=== PATIENT | male | born 1960 | race Caucasian/White ===

== ENCOUNTER 2017-01-12 12:59 | Inpatient (IN) | payer MEDICAID ==
[2017-01-12] VITALS (13 sets, daily range): BP systolic 113–155
[~2017-01-12] VITALS: Ht 182.9 cm; Wt 85.7 kg
[2017-01-12] MEDS ORDERED: DILTIAZEM HCL 156.25 MG in D5W 100 ML IV ONE (13:15)
[2017-01-12] MEDS ORDERED: DILTIAZEM HCL 25 MG/5 ML VIAL IVP ONE (13:15)
[2017-01-12] MEDS ORDERED: ASPIRIN 81 MG TAB.CHEW PO ONE (13:15)
[2017-01-12 13:38] LABS: BASOPHILS # (AUTO) 0.1 K/uL (0.0-0.2); BASOPHILS % (AUTO) 0.9 % (0.0-2.0); HEMATOCRIT 42.3 % (36-54); HEMOGLOBIN 13.9 g/dL (14.0-18.0); LYMPHOCYTES # (AUTO) 0.2 K/uL (1.0-5.5); LYMPHOCYTES % (AUTO) 2.6 % (20.5-51.5); MEAN CORPUSCULAR HEMOGLOBIN 34 pg (27-31); MEAN CORPUSCULAR HGB CONC 33 % (32-36); MEAN CORPUSCULAR VOLUME 104 fL (79.0-98.0); MONOCYTES # (AUTO) 0.6 K/uL (0.0-1.0); MONOCYTES % (AUTO) 6.5 % (1.7-9.3); NEUTROPHILS # (AUTO) 8.2 K/uL (1.8-7.7); PLATELET COUNT (AUTO) 180 K/uL (130-430); RED BLOOD CELL COUNT(AUTO) 4.05 MIL/uL (4.2-6.2); RED CELL DISTRIBUTION WIDTH 11.9 % (9.0-15.0); WHITE BLOOD COUNT (AUTO) 9.1 K/uL (4.8-10.8)
[2017-01-12 13:39] LABS: CALCIUM 9.1 mg/dL (8.4-11.0); CHLORIDE 92 mmol/L (98-107); POTASSIUM 4.9 mmol/L (3.5-5.1); SODIUM SERUM 129 mmol/L (136-145); UREA NITROGEN, BLOOD 17 mg/dL (8-21)
[2017-01-12 13:41] LABS: PROTHROMBIN TIME 10.7 SECS (9.5-12.5)
[2017-01-12] MEDS ORDERED: NS 250 ML IV ONE (13:45)
[2017-01-12 13:50] LABS: ALANINE AMINOTRANSFERASE 75 U/L (12-78); ALBUMIN 2.8 g/dL (3.4-4.8); ANION GAP 32 (5-15); ASPARTATE AMINOTRANSFERASE 52 U/L (10-37); FREE T4 (FREE THYROXINE) 0.9 ng/dl (0.8-1.5); TOTAL BILIRUBIN 0.9 mg/dL (0.0-1.0)
[2017-01-12 13:51] LABS: GFR AFRICAN AMERICAN 62 mL/min (>90)
[2017-01-12 13:53] LABS: GLUCOSE 484 mg/dL (70-99)
[2017-01-12 13:54] LABS: ALCOHOL, BLOOD < 3 mg/dL (<10)
[2017-01-12] MEDS ORDERED: DIGOXIN 0.5 MG/2 ML AMP IVP ONE ×2 (14:15)
[2017-01-12] MEDS ORDERED: NACL 0.9% 1,000 ML IV SCH (14:15)
[2017-01-12] MEDS ORDERED: *HEPARIN PER PHARMACY XX ONE (14:15)
[2017-01-12] MEDS ORDERED: NACL 0.9% 1,000 ML IV ONE ×2 (14:15→17:00)
[2017-01-12] MEDS ORDERED: INSULIN REGULAR, HUMAN 10 UNITS/0.1 ML INJ IVP ONE (14:15)
[2017-01-12] MEDS ORDERED: IOHEXOL 350 mgI/mL, 150 ML INFUS..BTL IV ONE (15:05)
[2017-01-12 15:11] LABS: BILIRUBIN,URINE 1+ (NEGATIVE); BLOOD, URINE 2+ (NEGATIVE); CLARITY/URINE CLEAR (CLEAR); COLOR,URINE YELLOW (YELLOW); GLUCOSE,URINE 3+ (NEGATIVE); KETONES,URINE 2+ (NEGATIVE); LEUKOCYTE ESTERASE ,URINE NEGATIVE (NEGATIVE); NITRITE, URINE NEGATIVE (NEGATIVE); PH,URINE 5.5 (5.0-8.0); PROTEIN URINE 2+ (NEGATIVE)
[2017-01-12 15:13] LABS: BACTERIA,URINE FEW /HPF (None Seen); MUCUS,URINE None Seen /LPF (None Seen); RBC,URINE 0-3 /HPF (0-3); WBC,URINE NONE SEEN /HPF (0-3)
[2017-01-12 15:14] LABS: BARBITURATE, URINE NEGATIVE (NEG <=200); BENZODIAZEPINE, URINE NEGATIVE (NEG <=150); CANNABINOID, URINE NEGATIVE (NEG <=50); COCAINE, URINE NEGATIVE (NEG <=150); METHAMPHETAMINES SCREEN,URINE NEGATIVE (NEG <=500); OPIATE, URINE NEGATIVE (NEG <=100); PHENCYCLIDINE SCREEN,URINE NEGATIVE (NEG <=25); UR TRICYCLIC ANTIDEPRESSANTS NEGATIVE (NEG <=300); URINE AMPHETAMINE NEGATIVE (NEG <=500); URINE METHADONE NEGATIVE (NEG <=200); URINE OXYCODONE SCREEN NEGATIVE (NEG <=100); URINE PROPOXYPHENE SCREEN NEGATIVE (NEG <=300)
[2017-01-12] MEDS ORDERED: HEPARIN SODIUM,PORCINE 3000 UNITS/0.6 ML BOLUS IVP ONE (15:15)
[2017-01-12] MEDS ORDERED: NACL 0.9% 1,000 ML IV STA (16:44)
[2017-01-12] MEDS ORDERED: DEXTROSE 50% JECT 50 ML (1 AMP) IVP PRN (16:45)
[2017-01-12] MEDS ORDERED: HEPARIN SODIUM,PORCINE 2000 UNITS/0.4 ML BOLUS IVP PRN (16:45)
[2017-01-12] MEDS ORDERED: HEPARIN SODIUM,PORCINE 3000 UNITS/0.6 ML BOLUS IVP PRN (16:45)
[2017-01-12] MEDS ORDERED: 0.45% NACL 1,000 ML IV SCH (16:45)
[2017-01-12] MEDS: HEPARIN 25,000 UNITS in 250 ML PREMIX IV PRN (16:52)
[2017-01-12 17:18] LABS: CALCIUM 9.1 mg/dL (8.4-11.0); CREATININE 1.29 mg/dL (0.55-1.30); POTASSIUM 4.2 mmol/L (3.5-5.1)
[2017-01-12] MEDS ORDERED: INSULIN REGULAR, HUMAN 101.01 UNITS in NS 99 ML IV PRN ×2 (17:45)
[2017-01-12] MEDS: CEFEPIME 1 GM in D5W 50 ML IV SCH (18:05)
[2017-01-12] MEDS: INSULIN REGULAR, HUMAN 101.01 UNITS in NS 99 ML IV PRN ×6 (18:35→20:58)
[2017-01-12] MEDS: VANCOMYCIN HCL 1,250 MG in NS 250 ML IV SCH (18:43)
[2017-01-12] MEDS ORDERED: DILTIAZEM HCL 125 MG/25 ML VIAL IV ONE ×2 (20:50→20:55)
[2017-01-12] MEDS: DILTIAZEM HCL 125 MG in D5W 100 ML IV PRN (21:09)
[2017-01-12 21:57] LABS: CALCIUM 8.6 mg/dL (8.4-11.0); CREATININE 1.2 mg/dL (0.55-1.30); POTASSIUM 3.9 mmol/L (3.5-5.1)
[2017-01-12] MEDS: MORPHINE 2 MG/ML INJ. SYRINGE IVP PRN (22:07)
[2017-01-12] MEDS ORDERED: COMMUNICATION ORDER XX ONE ×3 (22:30→22:45)
[2017-01-12] MEDS ORDERED: KCL 20 mEq in D5/0.45NS 1000mL 1,000 ML IV SCH (23:15)
[2017-01-12 23:44] LABS: CALCIUM 8.9 mg/dL (8.4-11.0); CREATININE 1.06 mg/dL (0.55-1.30); POTASSIUM 3.9 mmol/L (3.5-5.1)
[2017-01-13] VITALS (24 sets, daily range): BP systolic 120–151
[2017-01-13] MEDS: MORPHINE 2 MG/ML INJ. SYRINGE IVP PRN ×3 (01:48→14:52)
[2017-01-13] MEDS ORDERED: KCL 20 mEq in 100 mL (PREMIX) 100 ML IV PRN (03:00)
[2017-01-13 03:33] LABS: CALCIUM 8.2 mg/dL (8.4-11.0); CREATININE 1.11 mg/dL (0.55-1.30); POTASSIUM 3.3 mmol/L (3.5-5.1)
[2017-01-13] MEDS ORDERED: DILTIAZEM HCL 125 MG/25 ML VIAL IV ONE ×2 (05:05→05:09)
[2017-01-13] MEDS: DILTIAZEM HCL 125 MG in D5W 100 ML IV PRN (05:12)
[2017-01-13] MEDS ORDERED: DILTIAZEM HCL 25 MG/5 ML VIAL ONE (05:13)
[2017-01-13] MEDS: CEFEPIME 1 GM in D5W 50 ML IV SCH ×2 (05:20→17:24)
[2017-01-13] MEDS: VANCOMYCIN HCL 1,250 MG in NS 250 ML IV SCH ×2 (05:20→20:27)
[2017-01-13] MEDS: HEPARIN 25,000 UNITS in 250 ML PREMIX IV PRN (07:20)
[2017-01-13 07:28] LABS: CALCIUM 8.4 mg/dL (8.4-11.0); POTASSIUM 3.6 mmol/L (3.5-5.1)
[2017-01-13] MEDS ORDERED: KCL 20 mEq in 100 mL (PREMIX) 100 ML IV ONE (08:27)
[2017-01-13] MEDS ORDERED: GLUCOSE 15 GM GEL (in 37.5 GM TUBE) PO PRN ×2 (09:15)
[2017-01-13] MEDS ORDERED: DEXTROSE 50%-WATER 50 ML DISP.SYRIN IVP PRN ×2 (09:15)
[2017-01-13] MEDS: KCL 20 mEq in 0.45% NS 1000 mL 1,000 ML IV SCH ×2 (10:38→20:27)
[2017-01-13 11:56] LABS: CALCIUM 8.4 mg/dL (8.4-11.0); CREATININE 1.1 mg/dL (0.55-1.30); POTASSIUM 4.1 mmol/L (3.5-5.1)
[2017-01-13] MEDS: DILTIAZEM HCL 156.25 MG in D5W 100 ML IV SCH ×2 (12:51→21:39)
[2017-01-13] MEDS: INSULIN ASPART 100 UNITS/ML, 10 ML VIAL (NovoLOG) SUBCUT PRN ×2 (12:59→16:36)
[2017-01-13] MEDS ORDERED: DILTIAZEM HCL 180 MG CAP.SR.24H PO ONE (13:30)
[2017-01-13 15:25] LABS: CALCIUM 8.2 mg/dL (8.4-11.0); CREATININE 1.13 mg/dL (0.55-1.30); POTASSIUM 3.5 mmol/L (3.5-5.1)
[2017-01-13] MEDS ORDERED: LORazepam 1 MG TABLET PO PRN ×2 (16:30→18:30)
[2017-01-13] MEDS ORDERED: MORPHINE 2 MG/ML INJ. SYRINGE IVP ONE (17:15)
[2017-01-13] MEDS ORDERED: LORazepam 2 MG/ML VIAL IVP ONE ×2 (18:30→21:00)
[2017-01-13] MEDS ORDERED: chlordiazePOXIDE HCL 25 MG CAPSULE PO PRN (18:30)
[2017-01-13] MEDS ORDERED: LORazepam 2 MG/ML VIAL ONE (18:39)
[2017-01-13] MEDS: CLINDAMYCIN 600 MG in D5W 50 ML IV SCH ×2 (20:27→23:56)
[2017-01-13] MEDS: RIVAROXABAN 10 MG TABLET PO SCH (21:40)
[2017-01-13] MEDS: MORPHINE 4 MG/ML INJ. SYRINGE IVP PRN (23:57)
[2017-01-14] VITALS (24 sets, daily range): BP systolic 98–144
[2017-01-14] MEDS: LORazepam 2 MG/ML VIAL IVP PRN ×2 (02:34→05:54)
[2017-01-14] MEDS: KCL 20 mEq in 0.45% NS 1000 mL 1,000 ML IV SCH ×2 (02:43→16:48)
[2017-01-14] MEDS: CEFEPIME 1 GM in D5W 50 ML IV SCH ×2 (04:41→17:19)
[2017-01-14] MEDS ORDERED: DILTIAZEM HCL 125 MG/25 ML VIAL IV ONE (05:23)
[2017-01-14] MEDS: CLINDAMYCIN 600 MG in D5W 50 ML IV SCH ×3 (05:27→17:54)
[2017-01-14] MEDS: VANCOMYCIN HCL 1,250 MG in NS 250 ML IV SCH ×2 (05:27→18:28)
[2017-01-14] MEDS: INSULIN ASPART 100 UNITS/ML, 10 ML VIAL (NovoLOG) SUBCUT PRN ×2 (06:03→11:00)
[2017-01-14 06:23] LABS: BASOPHILS % (AUTO) 0.9 % (0.0-2.0); EOSINOPHILS % (AUTO) 0.6 % (0.0-4.0); HEMATOCRIT 33.2 % (36-54); HEMOGLOBIN 11.2 g/dL (14.0-18.0); LYMPHOCYTES # (AUTO) 0.6 K/uL (1.0-5.5); LYMPHOCYTES % (AUTO) 15.7 % (20.5-51.5); MEAN CORPUSCULAR HEMOGLOBIN 35 pg (27-31); MEAN CORPUSCULAR HGB CONC 34 % (32-36); MEAN CORPUSCULAR VOLUME 103 fL (79.0-98.0); MONOCYTES # (AUTO) 0.4 K/uL (0.0-1.0); MONOCYTES % (AUTO) 10.5 % (1.7-9.3); NEUTROPHILS # (AUTO) 3.1 K/uL (1.8-7.7); NEUTROPHILS % (AUTO) 72.3 % (40.0-70.0); PLATELET COUNT (AUTO) 132 K/uL (130-430); RED BLOOD CELL COUNT(AUTO) 3.23 MIL/uL (4.2-6.2); RED CELL DISTRIBUTION WIDTH 12.3 % (9.0-15.0); WHITE BLOOD COUNT (AUTO) 4.1 K/uL (4.8-10.8)
[2017-01-14 06:46] LABS: CALCIUM 8.2 mg/dL (8.4-11.0); CREATININE 1.02 mg/dL (0.55-1.30); POTASSIUM 3.3 mmol/L (3.5-5.1)
[2017-01-14] MEDS ORDERED: IOHEXOL 100 ML IV ONE (11:39)
[2017-01-14] MEDS ORDERED: LIDOCAINE 1%, 20 ML MDV 20 ML ONE (11:55)
[2017-01-14] MEDS: MORPHINE 4 MG/ML INJ. SYRINGE IVP PRN (13:47)
[2017-01-14] MEDS ORDERED: POTASSIUM CHLORIDE 20 MEQ/PKT PACKET PO ONE (16:45)
[2017-01-14] MEDS: RIVAROXABAN 10 MG TABLET PO SCH (17:54)
[2017-01-14] MEDS ORDERED: DILTIAZEM HCL 125 MG in D5W 100 ML IV SCH (18:42)
[2017-01-15] VITALS (21 sets, daily range): BP systolic 105–138
[2017-01-15] MEDS: CLINDAMYCIN 600 MG in D5W 50 ML IV SCH ×3 (00:48→11:16)
[2017-01-15] MEDS: MORPHINE 4 MG/ML INJ. SYRINGE IVP PRN ×2 (00:49→05:28)
[2017-01-15] MEDS: KCL 20 mEq in 0.45% NS 1000 mL 1,000 ML IV SCH ×2 (05:29→16:20)
[2017-01-15] MEDS: CEFEPIME 1 GM in D5W 50 ML IV SCH (05:52)
[2017-01-15] MEDS: VANCOMYCIN HCL 1,250 MG in NS 250 ML IV SCH ×2 (06:12→17:46)
[2017-01-15 06:38] LABS: CREATININE 0.84 mg/dL (0.55-1.30)
[2017-01-15 06:46] LABS: POTASSIUM 2.9 mmol/L (3.5-5.1)
[2017-01-15 06:52] LABS: BASOPHILS # (AUTO) 0.1 K/uL (0.0-0.2); BASOPHILS % (AUTO) 1.1 % (0.0-2.0); EOSINOPHILS # (AUTO) 0.1 K/uL (0.0-0.4); EOSINOPHILS % (AUTO) 2.8 % (0.0-4.0); HEMATOCRIT 33.3 % (36-54); HEMOGLOBIN 11.3 g/dL (14.0-18.0); LYMPHOCYTES # (AUTO) 0.9 K/uL (1.0-5.5); LYMPHOCYTES % (AUTO) 19.8 % (20.5-51.5); MEAN CORPUSCULAR HEMOGLOBIN 35 pg (27-31); MEAN CORPUSCULAR HGB CONC 34 % (32-36); MEAN CORPUSCULAR VOLUME 103 fL (79.0-98.0); MONOCYTES # (AUTO) 0.3 K/uL (0.0-1.0); MONOCYTES % (AUTO) 6.3 % (1.7-9.3); NEUTROPHILS # (AUTO) 3.2 K/uL (1.8-7.7); PLATELET COUNT (AUTO) 164 K/uL (130-430); RED BLOOD CELL COUNT(AUTO) 3.24 MIL/uL (4.2-6.2); RED CELL DISTRIBUTION WIDTH 12.7 % (9.0-15.0); WHITE BLOOD COUNT (AUTO) 4.6 K/uL (4.8-10.8)
[2017-01-15] MEDS ORDERED: POTASSIUM CHLORIDE 20 MEQ TAB.PRT.SR PO ONE (07:30)
[2017-01-15] MEDS ORDERED: POTASSIUM CHLORIDE 40 MEQ in NS 250 ML IV ONE (07:30)
[2017-01-15] MEDS ORDERED: DILTIAZEM HCL 120 MG CAP.SR.24H PO ONE (09:30)
[2017-01-15] MEDS ORDERED: MORPHINE 4 MG/ML INJ. SYRINGE IVP PRN (11:45)
[2017-01-15] MEDS ORDERED: D5/0.45 NS 1,000 ML IV SCH (16:45)
[2017-01-15] MEDS ORDERED: KCL 20 mEq in D5/0.45NS 1000mL 1,000 ML IV SCH (16:45)
[2017-01-15] MEDS ORDERED: PIPERACILLIN/TAZO 4.5GM/DEX-IS 100 ML IV SCH (16:45)
[2017-01-15] MEDS ORDERED: D10W 1,000 ML IV SCH (17:00)
[2017-01-15] MEDS: RIVAROXABAN 10 MG TABLET PO SCH (17:49)
[2017-01-16] MEDS ORDERED: DILTIAZEM HCL 120 MG CAP.SR.24H PO SCH (09:00)
== END 2017-01-15 23:00 | disposition short-term general hospital (02) | DRG 720 ==
LOC: SED 12:59 → SIC 14:11
PROVIDERS: ADMIT Family Medicine; ATTEND Family Medicine
PROC: 0V950ZZ Drainage of Scrotum, Open Approach (ICD-10-PCS; principal; 2017-01-14)
DX: A40.9 Streptococcal sepsis, unspecified (principal); M72.6 Necrotizing fasciitis; E13.10 Other specified diabetes mellitus with ketoacidosis without coma; N45.2 Orchitis; F17.210 Nicotine dependence, cigarettes, uncomplicated; I48.91 Unspecified atrial fibrillation; F10.10 Alcohol abuse, uncomplicated; F41.9 Anxiety disorder, unspecified; Z79.01 Long term (current) use of anticoagulants
CPT/HCPCS: 36415; 36600; 71010; 71275; 72193-TC; 74000-TC; 76870-TC; 80048; 80053; 80202-TC; 80307; 81000-TC; 82009-TC; 82803-TC; 82962; 83036; 83605; 83880; 84439; 84484; 85025; 85379; 85610-TC; 85730-TC; 87040-TC; 87070-TC; 87081; 87186-TC; 93005; 93306; 96361; 96374; 96375; 99285; G0482; J0692; J1160; J1644; J1815; J2001; J2060; J2270; J2543; J3370; J3480; J3490; J7030; J7042; J7050; J7060; Q9967

== ENCOUNTER 2019-06-25 12:13 | Inpatient (IN) | payer MEDICAID ==
[~2019-06-25] VITALS: Ht 182.9 cm; Wt 93.4 kg
[2019-06-25 12:13] VITALS: BP_SYST 144
[2019-06-25] MEDS ORDERED: LACTULOSE 20 GM/30 ML UDC PO ONE (13:00)
[2019-06-25 13:37] LABS: BASOPHILS # (AUTO) 0.1 K/uL (0.0-0.2); BASOPHILS % (AUTO) 0.8 % (0.0-2.0); EOSINOPHILS # (AUTO) 0.2 K/uL (0.0-0.4); EOSINOPHILS % (AUTO) 2.5 % (0.0-4.0); HEMATOCRIT 37.4 % (36-54); HEMOGLOBIN 12.4 g/dL (14.0-18.0); LYMPHOCYTES # (AUTO) 2.1 K/uL (1.0-5.5); LYMPHOCYTES % (AUTO) 26.5 % (20.5-51.5); MEAN CORPUSCULAR HEMOGLOBIN 34 pg (27-31); MEAN CORPUSCULAR HGB CONC 33 % (32-36); MEAN CORPUSCULAR VOLUME 101 fL (79.0-98.0); MONOCYTES # (AUTO) 0.4 K/uL (0.0-1.0); MONOCYTES % (AUTO) 4.9 % (1.7-9.3); NEUTROPHILS # (AUTO) 5.1 K/uL (1.8-7.7); NEUTROPHILS % (AUTO) 65.3 % (40.0-70.0); PLATELET COUNT (AUTO) 272 K/uL (130-430); RED CELL DISTRIBUTION WIDTH 12.9 % (9.0-15.0); WHITE BLOOD COUNT (AUTO) 7.8 K/uL (4.8-10.8)
[2019-06-25 13:42] LABS: CALCIUM 8.9 mg/dL (8.4-11.0); CREATININE 1.41 mg/dL (0.55-1.30)
[2019-06-25 13:47] LABS: ALBUMIN 4.3 g/dL (3.4-4.8); TOTAL BILIRUBIN 0.4 mg/dL (0.0-1.0)
[2019-06-25 13:50] LABS: POTASSIUM 6.1 mmol/L (3.5-5.1)
[2019-06-25] MEDS ORDERED: INSULIN REGULAR, HUMAN 10 UNITS/0.1 ML INJ IVP ONE (14:15)
[2019-06-25] MEDS ORDERED: DEXTROSE 50% JECT 50 ML DISP.SYRIN IVP ONE (14:15)
[2019-06-25] MEDS ORDERED: GLIP-201 PO (14:40)
[2019-06-25] MEDS ORDERED: LISI10TA PO (14:40)
[2019-06-25] MEDS ORDERED: NEU400 PO (14:40)
[2019-06-25] MEDS ORDERED: TAMS-11 PO (14:40)
[2019-06-25 16:03] LABS: BILIRUBIN,URINE NEGATIVE (NEGATIVE); BLOOD, URINE NEGATIVE (NEGATIVE); CLARITY/URINE CLEAR (CLEAR); COLOR,URINE YELLOW (YELLOW); GLUCOSE,URINE TRACE (NEGATIVE); KETONES,URINE NEGATIVE (NEGATIVE); LEUKOCYTE ESTERASE ,URINE NEGATIVE (NEGATIVE); NITRITE, URINE NEGATIVE (NEGATIVE); PH,URINE 5.5 (5.0-8.0); PROTEIN URINE NEGATIVE (NEGATIVE); UROBILINOGEN,URINE 0.2 (0.2-1.0)
[2019-06-25 16:57] VITALS: BP_SYST 130
[2019-06-25] MEDS ORDERED: FLU VACC QS2019-20 36MOS UP/PF 60 MCG/0.5 ML SYRINGE I.M. PRN (17:00)
[2019-06-25] MEDS ORDERED: INSULIN REGULAR, HUMAN 100 UNITS/ML, 10 ML VIAL (humuLIN R) SUBCUT PRN (18:15)
[2019-06-25] MEDS ORDERED: DEXTROSE 50% JECT 50 ML DISP.SYRIN IVP PRN (18:15)
[2019-06-25] MEDS: NACL 0.9% 1,000 ML IV SCH (18:35)
[2019-06-25 20:00] VITALS: BP_SYST 111
[2019-06-25] MEDS: GABAPENTIN 300 MG CAPSULE PO SCH (21:18)
[2019-06-25 23:50] VITALS: BP_SYST 100
[2019-06-26 06:00] LABS: ALBUMIN 3.3 g/dL (3.4-4.8); CALCIUM 8.1 mg/dL (8.4-11.0); CREATININE 1.52 mg/dL (0.55-1.30); TOTAL BILIRUBIN 0.4 mg/dL (0.0-1.0)
[2019-06-26 06:41] LABS: BASOPHILS # (AUTO) 0.1 K/uL (0.0-0.2); EOSINOPHILS # (AUTO) 0.3 K/uL (0.0-0.4); EOSINOPHILS % (AUTO) 4.9 % (0.0-4.0); HEMATOCRIT 33.2 % (36-54); HEMOGLOBIN 11.2 g/dL (14.0-18.0); LYMPHOCYTES # (AUTO) 1.9 K/uL (1.0-5.5); LYMPHOCYTES % (AUTO) 32.9 % (20.5-51.5); MEAN CORPUSCULAR HEMOGLOBIN 35 pg (27-31); MEAN CORPUSCULAR HGB CONC 34 % (32-36); MEAN CORPUSCULAR VOLUME 102 fL (79.0-98.0); MONOCYTES # (AUTO) 0.4 K/uL (0.0-1.0); MONOCYTES % (AUTO) 6.9 % (1.7-9.3); NEUTROPHILS # (AUTO) 3.2 K/uL (1.8-7.7); NEUTROPHILS % (AUTO) 54.3 % (40.0-70.0); PLATELET COUNT (AUTO) 243 K/uL (130-430); RED BLOOD CELL COUNT(AUTO) 3.26 MIL/uL (4.2-6.2); RED CELL DISTRIBUTION WIDTH 12.8 % (9.0-15.0); WHITE BLOOD COUNT (AUTO) 5.9 K/uL (4.8-10.8)
[2019-06-26 07:11] LABS: POTASSIUM 6.3 mmol/L (3.5-5.1)
[2019-06-26] MEDS ORDERED: SODIUM POLYSTYRENE SULFONATE 15 GM/60 ML UDBTL PO ONE ×2 (07:30→08:45)
[2019-06-26] MEDS: TAMSULOSIN HCL 0.4 MG CAP PO SCH (08:48)
[2019-06-26] MEDS: glipiZIDE XL 5 MG TAB ( GLUCOTROL XL) PO SCH (08:48)
[2019-06-26] MEDS: GABAPENTIN 300 MG CAPSULE PO SCH ×3 (08:48→21:06)
[2019-06-26] MEDS: NACL 0.9% 1,000 ML IV SCH (08:51)
[2019-06-26 08:59] VITALS: BP_SYST 112
[2019-06-26 12:00] VITALS: BP_SYST 110
[2019-06-26 12:50] LABS: CALCIUM 7.9 mg/dL (8.4-11.0); CREATININE 1.36 mg/dL (0.55-1.30); POTASSIUM 5.5 mmol/L (3.5-5.1)
[2019-06-26 16:00] VITALS: BP_SYST 119
[2019-06-26 20:35] VITALS: BP_SYST 135
[2019-06-27 00:50] VITALS: BP_SYST 107
[2019-06-27] MEDS: NACL 0.9% 1,000 ML IV SCH (01:01)
[2019-06-27 07:31] LABS: CREATININE 1.4 mg/dL (0.55-1.30); POTASSIUM 4.8 mmol/L (3.5-5.1)
[2019-06-27 08:00] VITALS: BP_SYST 122
[2019-06-27] MEDS ORDERED: SODI5POW2 PO (08:38)
[2019-06-27] MEDS ORDERED: NOR10 PO (08:39)
[2019-06-27 09:48] VITALS: BP_SYST 107
[2019-06-27] MEDS: GABAPENTIN 300 MG CAPSULE PO SCH (10:50)
[2019-06-27] MEDS: TAMSULOSIN HCL 0.4 MG CAP PO SCH (10:50)
[2019-06-27] MEDS: glipiZIDE XL 5 MG TAB ( GLUCOTROL XL) PO SCH (10:50)
== END 2019-06-27 09:00 | disposition home or self-care (01) | DRG 425 ==
LOC: SED 12:13 → STU 15:57
PROVIDERS: ADMIT Internal Medicine Hospice and Palliative Medicine; ATTEND Internal Medicine Hospice and Palliative Medicine
DX: E87.5 Hyperkalemia (principal); E11.22 Type 2 diabetes mellitus with diabetic chronic kidney disease; I12.9 Hypertensive chronic kidney disease with stage 1 through stage 4 chronic kidney disease, or unspecified chronic kidney disease; N18.9 Chronic kidney disease, unspecified; T46.4X5A Adverse effect of angiotensin-converting-enzyme inhibitors, initial encounter; Z79.899 Other long term (current) drug therapy; Y92.89 Other specified places as the place of occurrence of the external cause
CPT/HCPCS: 36415; 80048; 80053; 81003; 82962; 85025; 93005; 96374; 96375; 99291; G0378; J1815; J7030